=== PATIENT | male | born 2000 | race Two or more races ===

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

== ENCOUNTER 2022-06-01 15:36 | Emergency (ER) | payer MEDICAID ==
[~2022-06-01] VITALS: Ht 172.7 cm; Wt 65.9 kg
[2022-06-01 16:00] VITALS: BP 130/67
== END 2022-06-01 17:53 | disposition home or self-care (01) ==
LOC: ER 15:36
DX: S80.11XA Contusion of right lower leg, initial encounter (principal); S80.12XA Contusion of left lower leg, initial encounter; S50.811A Abrasion of right forearm, initial encounter; V49.9XXA Car occupant (driver) (passenger) injured in unspecified traffic accident, initial encounter; Y93.89 Activity, other specified; Y92.89 Other specified places as the place of occurrence of the external cause; Y99.8 Other external cause status
CPT/HCPCS: 73590